=== PATIENT | female | born 1990 | race Asian ===

== ENCOUNTER 2018-03-30 14:34 | Outpatient (CLI) | payer MEDICAID ==
[~2018-03-30] VITALS: Ht 160 cm; Wt 64.1 kg
[2018-03-30 14:44] VITALS: BP 98/52
[2018-03-30] MEDS ORDERED: PREN-3 PO (15:05)
== END 2018-03-30 16:13 | disposition home or self-care (01) ==
LOC: LDOP 14:34
PROVIDERS: ATTEND Obstetrics & Gynecology
DX: O76 Abnormality in fetal heart rate and rhythm complicating labor and delivery (principal); Z3A.28 28 weeks gestation of pregnancy
CPT/HCPCS: 59025; 93005; 99201; G0463

== ENCOUNTER 2018-07-25 00:44 | Observation (INO) | payer MEDICAID ==
[~2018-07-25] VITALS: Ht 160 cm; Wt 59.2 kg
[~2018-07-25 00:44] MED LIST: IBUP-1222 PO; PREN-3 PO
[2018-07-25 01:27] LABS: HCG UR SG 1.031 (1.003-1.030); MICROSCOPIC AUTO
[2018-07-25 01:28] LABS: CULTURE INDICATED? YES
[2018-07-25] MEDS ORDERED: MORPHINE SULFATE 4 MG/ML, 1ML IVPush PRN ×2 (01:30→06:00)
[2018-07-25] MEDS ORDERED: ONDANSETRON 2MG/ML, 2ML IVPush ONE (01:30)
[2018-07-25] MEDS ORDERED: ONDANSETRON 2MG/ML, 2ML ONE (01:35)
[2018-07-25] MEDS ORDERED: MORPHINE SULFATE 4 MG/ML, 1ML ONE (01:36)
[2018-07-25 01:38] LABS: ALKALINE PHOSPHATASE 119 U/L (45-117); BILIRUBIN,TOTAL 0.4 mg/dL (0.2-1.0); TOTAL PROTEIN 7.7 g/dL (6.4-8.2)
[2018-07-25 01:42] LABS: MEAN CORPUSCULAR HEMOGLOBIN 25.8 pg (27.0-34.8); MEAN CORPUSCULAR VOLUME 78.1 fL (80-100); PLATELET COUNT 277 x10^3/uL (130-400); RED BLOOD COUNT 4.74 x10^6/uL (3.82-5.3); RED CELL DISTRIBUTION WIDTH 22.3 % (9.6-15.2)
[2018-07-25 01:49] LABS: ALANINE AMINOTRANSFERASE 86 U/L (12-78); ALBUMIN 3.8 g/dL (3.4-5.0); ANION GAP 9 mmol/L (5-15); CALCIUM 9.1 mg/dL (8.5-10.1); CHLORIDE 106 mmol/L (98-107); CREATININE 0.67 mg/dL (0.55-1.02)
[2018-07-25 02:06] LABS: BASOPHILS # (AUTO) 0.07 x10^3/uL (0-0.1); BASOPHILS % (AUTO) 0 % (0-1); EOSINOPHILS # (AUTO) 0.12 x10^3/uL (0-0.4); EOSINOPHILS % (AUTO) 1 % (1-7); LYMPHOCYTES % (AUTO) 11 % (22-44); MD SCAN; MONOCYTES # (AUTO) 0.37 x10^3/uL (0.2-0.8); MONOCYTES % (AUTO) 2 % (2-9); NEUTROPHILS # (AUTO) 13.51 x10^3/uL (1.8-6.8); NEUTROPHILS % (AUTO) 85 % (42-75)
[2018-07-25] MEDS ORDERED: SODIUM CHLORIDE 0.9% 1,000 ML IV ONE (05:32)
[2018-07-25] MEDS ORDERED: CEFTRIAXONE PMX 1GM/50ML 50 ML ONE (05:57)
[2018-07-25] MEDS ORDERED: ONDANSETRON 2MG/ML, 2ML IVPush PRN (06:00)
[2018-07-25] MEDS ORDERED: CEFTRIAXONE PMX 1GM/50ML 50 ML IV ONE (06:00)
[2018-07-25 06:15] VITALS: BP 99/67
[2018-07-25 08:20] VITALS: BP 95/61
[2018-07-25 13:57] LABS: BASOPHILS # (AUTO) 0.05 x10^3/uL (0-0.1); BASOPHILS % (AUTO) 1 % (0-1); EOSINOPHILS # (AUTO) 0.13 x10^3/uL (0-0.4); EOSINOPHILS % (AUTO) 1 % (1-7); LYMPHOCYTES # (AUTO) 2.68 x10^3/uL (1-3.4); LYMPHOCYTES % (AUTO) 28 % (22-44); MD NO; MEAN CORPUSCULAR VOLUME 78.8 fL (80-100); MEAN PLATELET VOLUME 7.9 fL (7.4-10.4); MONOCYTES # (AUTO) 0.53 x10^3/uL (0.2-0.8); MONOCYTES % (AUTO) 6 % (2-9); NEUTROPHILS # (AUTO) 6.06 x10^3/uL (1.8-6.8); NEUTROPHILS % (AUTO) 64 % (42-75); PLATELET COUNT 262 x10^3/uL (130-400); RED BLOOD COUNT 4.25 x10^6/uL (3.82-5.3)
[2018-07-25 14:08] LABS: CHLORIDE 110 mmol/L (98-107)
[2018-07-25 14:09] LABS: ALANINE AMINOTRANSFERASE 82 U/L (12-78); ALBUMIN 3.1 g/dL (3.4-5.0); ANION GAP 7 mmol/L (5-15); CALCIUM 8.5 mg/dL (8.5-10.1); CREATININE 0.57 mg/dL (0.55-1.02)
[2018-07-25 14:11] LABS: ALKALINE PHOSPHATASE 107 U/L (45-117); BILIRUBIN,TOTAL 0.4 mg/dL (0.2-1.0); TOTAL PROTEIN 6.5 g/dL (6.4-8.2)
[2018-07-25 14:53] VITALS: BP 110/75
[2018-07-25 18:40] VITALS: BP 106/73
== END 2018-07-25 18:42 | disposition home or self-care (01) ==
LOC: ED 01:28 → EDIP 05:32 → INTOOBSV 05:32 → 4NOR 06:04
PROVIDERS: ADMIT Surgery; ATTEND Surgery
DX: K80.20 Calculus of gallbladder without cholecystitis without obstruction (principal); N30.90 Cystitis, unspecified without hematuria; R10.11 Right upper quadrant pain; R11.2 Nausea with vomiting, unspecified
CPT/HCPCS: 36415; 76700; 80053; 81001; 81025; 83690; 85025; 87086; 96365; 96375; 99285; G0378; J0696; J2405; J7030; 96374

== ENCOUNTER 2021-04-18 09:45 | Inpatient (IN) | payer MEDICAID ==
[~2021-04-18] VITALS: Ht 157.5 cm; Wt 63.6 kg
[2021-04-18] MEDS ORDERED: FENTANYL PF 100 MCG/2ML IV PRN (11:30)
[2021-04-18] MEDS ORDERED: D5%-LACTATED RINGERS 1,000 ML IV SCH (11:30)
[2021-04-18] MEDS ORDERED: LACTATED RINGERS 1,000 ML IV PRN (11:30)
[2021-04-18] MEDS ORDERED: FENTANYL PF 100 MCG/2ML IVPush PRN (11:30)
[2021-04-18] MEDS ORDERED: OXYTOCIN 30U/ 0.9% NaCL 500ML 500 ML IV ONE (11:30)
[2021-04-18] MEDS ORDERED: MAGNESIUM SULF. PMX 20GM/500ML 500 ML IV SCH (11:30)
[2021-04-18] MEDS ORDERED: TERBUTALINE 1 MG/ML, 1ML IVPush PRN (11:30)
[2021-04-18] MEDS ORDERED: BETAMETHASONE 6 MG/ML, 5ML IM SCH (11:30)
[2021-04-18] MEDS ORDERED: MAGNESIUM SULFATE PMX 4GM/100M 100 ML IVPB ONE (11:30)
[2021-04-18] MEDS: LACTATED RINGERS 1,000 ML IV SCH ×2 (11:30→13:39)
[2021-04-18] MEDS ORDERED: TERBUTALINE 1 MG/ML, 1ML SQ PRN (11:30)
[2021-04-18] MEDS ORDERED: PENICILLIN GK 5,000,000 UNITS in DEXTROSE 5% 100 ML IVPB ONE (11:30)
[2021-04-18] MEDS ORDERED: MAGNESIUM SULF. PMX 20GM/500ML 500 ML IV ONE (11:34)
[2021-04-18] MEDS ORDERED: FENTANYL PF 100 MCG/2ML ONE (11:58)
[2021-04-18] MEDS ORDERED: LIDOCAINE 1%, 20ML ONE (12:24)
[2021-04-18] MEDS ORDERED: NEWBORN KIT ONE (12:24)
[2021-04-18] MEDS ORDERED: OXYTOCIN 30U/ 0.9% NaCL 500ML 500 ML ONE (12:25)
[2021-04-18 12:26] LABS: BASOPHILS % (AUTO) 0 % (0-1); EOSINOPHILS % (AUTO) 1 % (1-7); LYMPHOCYTES % (AUTO) 17 % (22-44); MEAN CORPUSCULAR HEMOGLOBIN 29.2 pg (27.0-34.8); MEAN CORPUSCULAR HGB CONC 33.4 g/dL (32.4-35.8); MEAN PLATELET VOLUME 7.7 fL (7.4-10.4); MONOCYTES % (AUTO) 5 % (2-9); NEUTROPHILS % (AUTO) 77 % (42-75); PLATELET COUNT 225 x10^3/uL (130-400); RED BLOOD COUNT 3.74 x10^6/uL (3.82-5.3); RED CELL DISTRIBUTION WIDTH 15.4 % (9.6-15.2)
[2021-04-18 12:33] LABS: ALBUMIN 2.4 g/dL (3.4-5.0); ANION GAP 9 mmol/L (5-15); CALCIUM 8.7 mg/dL (8.5-10.1); CHLORIDE 104 mmol/L (98-107)
[2021-04-18 12:38] LABS: ALANINE AMINOTRANSFERASE 34 U/L (12-78); ALKALINE PHOSPHATASE 115 U/L (45-117); BILIRUBIN,TOTAL 0.4 mg/dL (0.2-1.0); CREATININE 0.27 mg/dL (0.55-1.02); TOTAL PROTEIN 6.5 g/dL (6.4-8.2)
[2021-04-18] MEDS ORDERED: PLEASE ENTER HEIGHT AND WEIGHT MC SCH (13:00)
[2021-04-18 13:01] LABS: D-DIMER (DIC) 1.43 ug/mlFEU (0.00-0.52); PROTIME 9.8 Seconds (9.6-11.5)
[2021-04-18] MEDS ORDERED: MISOPROSTOL 200 MCG TABLET PR PRN (13:30)
[2021-04-18] MEDS ORDERED: ONDANSETRON 2MG/ML, 2ML IV PRN (13:30)
[2021-04-18] MEDS ORDERED: ACETAMINOPHEN 325 MG TABLET PO PRN (13:30)
[2021-04-18] MEDS ORDERED: SIMETHICONE 80 MG CHEW TAB PO PRN (13:30)
[2021-04-18] MEDS: OXYTOCIN 30U/ 0.9% NaCL 500ML 500 ML IV SCH ×2 (13:30→23:30)
[2021-04-18 14:37] VITALS: BP 105/65
[2021-04-18] MEDS: IBUPROFEN 600 MG TABLET PO PRN ×2 (14:40→20:37)
[2021-04-18] MEDS: OXYcodone/APAP 5/325MG TABLET PO PRN ×2 (14:40→20:38)
[2021-04-18 14:52] VITALS: BP 113/70
[2021-04-18] MEDS ORDERED: PENICILLIN GK 2,500,000 UNITS in DEXTROSE 5% 100 ML IVPB SCH (15:30)
[2021-04-18 17:10] VITALS: BP 109/71
[2021-04-18 20:30] VITALS: BP 104/67
[2021-04-18] MEDS: DOCUSATE 100 MG CAPSULE PO PRN (20:38)
[2021-04-18 21:36] LABS: MEAN CORPUSCULAR HEMOGLOBIN 29.7 pg (27.0-34.8); MEAN CORPUSCULAR HGB CONC 33.9 g/dL (32.4-35.8); MEAN PLATELET VOLUME 7.8 fL (7.4-10.4); PLATELET COUNT 264 x10^3/uL (130-400); RED BLOOD COUNT 3.85 x10^6/uL (3.82-5.3); RED CELL DISTRIBUTION WIDTH 15.6 % (9.6-15.2)
[2021-04-18 21:54] LABS: <PLATELET ESTIMATE> ADEQUATE; <PLT MORPHOLOGY> NORMAL PLT MORPH; <RBC MORPHOLOGY> NORMAL; BAND#(MANUAL) 1.15 x10^3/uL; BANDS%(MANUAL) 6 % (0-7); LYMPH#(MANUAL) 1.92 x10^3/uL (1-3.4); LYMPHS% (MANUAL) 10 % (22-44); METAMYELOCYTES# (MANUAL) 0.19 x10^3/uL (0-0); METAMYELOCYTES% (MANUAL) 1 % (0-1); MONOS#(MANUAL) 0.19 x10^3/uL (0.3-2.7); MONOS% (MANUAL) 1 % (2-9); SEG#(MANUAL) 15.74 x10^3/uL (1.8-6.8); SEGS% (MANUAL) 82 % (42-75)
[2021-04-18 23:58] VITALS: BP 99/64
[2021-04-19] MEDS: OXYcodone/APAP 5/325MG TABLET PO PRN ×3 (02:35→12:33)
[2021-04-19] MEDS: IBUPROFEN 600 MG TABLET PO PRN ×3 (02:35→21:50)
[2021-04-19] MEDS: LACTATED RINGERS 1,000 ML IV SCH ×3 (03:30→19:30)
[2021-04-19 04:55] VITALS: BP 96/62
[2021-04-19 07:30] VITALS: BP 97/65
[2021-04-19] MEDS: PRENATAL VIT/IRON/FA 1 EACH TABLET PO SCH (07:44)
[2021-04-19] MEDS: DOCUSATE 100 MG CAPSULE PO PRN ×2 (07:46→21:50)
[2021-04-19] MEDS: OXYTOCIN 30U/ 0.9% NaCL 500ML 500 ML IV SCH ×2 (09:30→19:30)
[2021-04-19 12:00] VITALS: BP 101/63
[2021-04-19 20:10] VITALS: BP 102/65
[2021-04-20] MEDS: LACTATED RINGERS 1,000 ML IV SCH (03:30)
[2021-04-20] MEDS: OXYTOCIN 30U/ 0.9% NaCL 500ML 500 ML IV SCH (05:30)
[2021-04-20 06:21] LABS: BASOPHILS % (AUTO) 0 % (0-1); EOSINOPHILS % (AUTO) 1 % (1-7); LYMPHOCYTES % (AUTO) 25 % (22-44); MONOCYTES % (AUTO) 5 % (2-9); NEUTROPHILS % (AUTO) 68 % (42-75); PLATELET COUNT 227 x10^3/uL (130-400); RED BLOOD COUNT 3.39 x10^6/uL (3.82-5.3); RED CELL DISTRIBUTION WIDTH 16.1 % (9.6-15.2)
[2021-04-20 06:33] LABS: CALCIUM 8.4 mg/dL (8.5-10.1); CHLORIDE 112 mmol/L (98-107); CREATININE 0.42 mg/dL (0.55-1.02)
[2021-04-20 06:43] LABS: ANION GAP 6 mmol/L (5-15)
[2021-04-20 07:45] VITALS: BP 101/66
[2021-04-20] MEDS: DOCUSATE 100 MG CAPSULE PO PRN (08:12)
[2021-04-20] MEDS: PRENATAL VIT/IRON/FA 1 EACH TABLET PO SCH (08:12)
[2021-04-20] MEDS ORDERED: IBUP-1222 PO (13:02)
[2021-04-20] MEDS: IBUPROFEN 600 MG TABLET PO PRN (13:14)
[2021-04-20] MEDS: OXYcodone/APAP 5/325MG TABLET PO PRN (13:14)
== END 2021-04-20 17:45 | disposition home or self-care (01) | DRG 805 ==
LOC: LDOP 09:45 → LDIP 11:16 → 2NW 14:50
PROVIDERS: ADMIT Obstetrics & Gynecology; ATTEND Obstetrics & Gynecology
PROC: 10E0XZZ Delivery of Products of Conception, External Approach (ICD-10-PCS; principal; 2021-04-18)
DX: O99.02 Anemia complicating childbirth (principal); O99.42 Diseases of the circulatory system complicating childbirth; Z37.0 Single live birth; O70.0 First degree perineal laceration during delivery; Z3A.32 32 weeks gestation of pregnancy; Z20.822 Contact with and (suspected) exposure to COVID-19; I83.92 Asymptomatic varicose veins of left lower extremity
CPT/HCPCS: 36415; 80048; 80053; 83735; 84100; 85025; 85049; 85379; 85384; 85610; 85730; 86592; 86850; 86900; 87081; 87635; 88305; 93306; G0378; J0702; J2540; J3010; J2590; J3475; J7120